=== PATIENT | female | born 2000 | race Caucasian/White ===

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

== ENCOUNTER → 2022-04-27 | Outpatient (CLI) | payer OTHER ==
[~2022-04-27] MED LIST changes: +Vistaril25 MG PO
== END | disposition home or self-care (01) ==
LOC: LAB 11:34 → LAB SHORT 11:34
DX: Z33.1 Pregnant state, incidental (principal)
CPT/HCPCS: 87081; 87150

== ENCOUNTER → 2022-05-18 | Outpatient (CLI) | payer OTHER ==
[2022-05-18 13:58] LABS: Protein, Urine Random 68.9 mg/dL (0.0-11.9); Protein/Creat Ratio, Ur Random 0.7
== END | disposition home or self-care (01) ==
LOC: LAB SHORT 10:59
PROVIDERS: Family Medicine
DX: R80.9 Proteinuria, unspecified (principal)
CPT/HCPCS: 82570; 84156

== ENCOUNTER → 2023-12-06 | Outpatient (CLI) | payer OTHER ==
[~2023-12-06] MED LIST changes: +IBU800 MG PO; +LABE100 PO; +NIFE30ER PO
[2023-12-06 14:34] LABS: Source, Urine Clean Catch
[2023-12-06 16:01] LABS: Amorphous Light (0-Heavy); Bacteria Mod /hpf; Squamous Epithelial Cells Mod /hpf (Few); White Blood Cells, Urine 0-2 /hpf (0-5)
[2023-12-06 16:03] LABS: U Amphetamine Screen Not Detected; U Barbituate Screen Not Detected; U Benzodiazapine Screen Not Detected; U Buprenorphine Screen Not Detected; U Cannabinoids Screen DETECTED; U Cocaine Screen Not Detected; U Methadone Screen Not Detected; U Methamphetamine Screen Not Detected; U Opiates Screen Not Detected; U Oxycodone Screen Not Detected; U Phencyclidine Screen Not Detected
[2023-12-06 16:49] LABS: Protein, Urine Random 19.7 mg/dL (0.0-11.9); Protein/Creat Ratio, Ur Random 0.1
[2023-12-09 06:48] LABS: 11-NOR-9-CARBOXY-THC,URN,QUANT >500 ng/mL
== END ==
LOC: LAB SHORT 14:30 → LAB 14:30
PROVIDERS: Advanced Practice Midwife
DX: O09.90 Supervision of high risk pregnancy, unspecified, unspecified trimester (principal); Z3A.00 Weeks of gestation of pregnancy not specified
CPT/HCPCS: 81015; 82570; 84156; 87077; 87086; 87186; G0480

== ENCOUNTER → 2024-06-19 | Outpatient (CLI) | payer OTHER | END | disposition home or self-care (01) | LOC: LAB SHORT 14:26 → LAB 14:26 | DX: O09.90 Supervision of high risk pregnancy, unspecified, unspecified trimester (principal); Z3A.00 Weeks of gestation of pregnancy not specified | CPT/HCPCS: 87081; 87150 ==